=== PATIENT | male | born 1975 | race Caucasian/White ===

== ENCOUNTER 2021-05-07 09:21 | Inpatient (IN) | payer BC ==
[2021-05-07 10:12] VITALS: BMI 22.1
[2021-05-07] MEDS ORDERED: methaDONE HCL 10 MG TABLET (FOR DETOX USE ONLY) PO ONE (11:11)
[2021-05-07] MEDS ORDERED: BISMUTH SUBSALICYLATE 524 MG/30 ML PO PRN (11:11)
[2021-05-07] MEDS ORDERED: ONDANSETRON *ODT* 4 MG TABLET SL PRN (11:11)
[2021-05-07] MEDS ORDERED: ACETAMINOPHEN 325 MG TABLET (FP) PO PRN (11:11)
[2021-05-07] MEDS ORDERED: NICOTINE 10 MG CARTRIDGE (INHALER) IH PRN (11:11)
[2021-05-07] MEDS ORDERED: diazePAM 5 MG TABLET PO PRN (11:11)
[2021-05-07] MEDS ORDERED: MAGNESIUM HYDROX 2400MG/30ML ORAL SUSPENSION 30 ML CUP PO PRN (11:11)
[2021-05-07] MEDS ORDERED: MAGNESIUM CITRATE 300 ML BOTTLE PO PRN (11:11)
[2021-05-07] MEDS ORDERED: clonazePAM 0.5 MG ODT TABLETS SL PRN (11:11)
[2021-05-07] MEDS ORDERED: MENTHOL/PHENOL 1 EACH UD MM PRN (11:11)
[2021-05-07] MEDS: diazePAM 5 MG TABLET PO SCH ×3 (11:29→22:09)
[2021-05-07] MEDS ORDERED: IBUPROFEN 400 MG TABLET (FP) PO ONE (12:38)
[2021-05-07] MEDS: hydrOXYzine PAMOATE 25 MG CAPSULE (FP) PO SCH ×3 (13:23→22:09)
[2021-05-07] MEDS: NICOTINE 14 MG/24 HOURS TOPICAL PATCH TD SCH (13:23)
[2021-05-07] MEDS: PRENATAL VITAMINS W/ FOLIC ACID TABLET (FP) PO SCH (13:23)
[2021-05-07 17:29] LABS: HEMATOCRIT 41.6 % (35.4-49); HEMOGLOBIN 14.2 GM/dL (11.7-16.9); MCH 33.2 pg (25.7-33.7); MCHC 34.3 g/dl (32.0-35.9); MEAN CELL VOLUME 96.9 fl (80-96); MEAN PLT VOLUME 9.6 fl (7.5-11.1); PLATELET COUNT 209 10^3/uL (134-434); RBC 4.29 M/mm3 (4.00-5.60); RDW 12.9 % (11.9-15.9); WHITE BLOOD COUNT 7.2 K/mm3 (4.0-10.0)
[2021-05-07 17:30] LABS: CALCIUM 9.4 mg/dL (8.5-10.1)
[2021-05-07 17:31] LABS: ALBUMIN 4.1 g/dl (3.4-5.0); BLOOD UREA NITROGEN 10.8 mg/dL (7-18)
[2021-05-07] MEDS: MAG HYDROX/AL HYDROX/SIMETH 30 ML UNIT-DOSE CUP PO PRN (17:31)
[2021-05-07 17:34] LABS: CREATININE 0.8 mg/dL (0.55-1.3)
[2021-05-07 17:36] LABS: BILIRUBIN,TOTAL 0.7 mg/dL (0.2-1)
[2021-05-07 17:37] LABS: TOT PROT 7.6 g/dl (6.4-8.2)
[2021-05-07] MEDS: cloNIDine HCL 0.1 MG TABLET PO PRN (18:46)
[2021-05-07] MEDS: METHOCARBAMOL 500 MG TABLET PO PRN (18:46)
[2021-05-07] MEDS: MELATONIN 5 MG TABLETS PO SCH (22:08)
[2021-05-07] MEDS: THIAMINE HCL 100 MG TABLET (FP) PO SCH (22:09)
[2021-05-08] MEDS: ACETAMINOPHEN 325 MG TABLET (FP) PO PRN (03:31)
[2021-05-08] MEDS: METHOCARBAMOL 500 MG TABLET PO PRN (03:33)
[2021-05-08] MEDS: hydrOXYzine PAMOATE 25 MG CAPSULE (FP) PO SCH ×5 (06:36→22:24)
[2021-05-08] MEDS: diazePAM 5 MG TABLET PO SCH (06:37)
[2021-05-08] MEDS ORDERED: LORazepam 2 MG TABLET PO ONE (09:15)
[2021-05-08] MEDS ORDERED: methaDONE HCL 10 MG TABLET (FOR DETOX USE ONLY) ONE (09:24)
[2021-05-08] MEDS: cloNIDine HCL 0.1 MG TABLET PO PRN ×2 (09:33→17:56)
[2021-05-08] MEDS: LORazepam 2 MG TABLET PO SCH ×3 (10:10→22:23)
[2021-05-08] MEDS: NICOTINE 14 MG/24 HOURS TOPICAL PATCH TD SCH (10:11)
[2021-05-08] MEDS: PRENATAL VITAMINS W/ FOLIC ACID TABLET (FP) PO SCH (10:11)
[2021-05-08] MEDS: MELATONIN 5 MG TABLETS PO SCH (22:21)
[2021-05-08] MEDS: THIAMINE HCL 100 MG TABLET (FP) PO SCH (22:22)
[2021-05-09] MEDS ORDERED: diazePAM 5 MG TABLET PO SCH (06:00)
[2021-05-09] MEDS: hydrOXYzine PAMOATE 25 MG CAPSULE (FP) PO SCH ×2 (06:03→10:41)
[2021-05-09] MEDS: LORazepam 2 MG TABLET PO SCH ×4 (06:04→22:11)
[2021-05-09] MEDS ORDERED: methaDONE HCL 10 MG TABLET (FOR DETOX USE ONLY) PO ONE (10:00)
[2021-05-09] MEDS: NICOTINE 14 MG/24 HOURS TOPICAL PATCH TD SCH (10:18)
[2021-05-09] MEDS: PRENATAL VITAMINS W/ FOLIC ACID TABLET (FP) PO SCH (10:18)
[2021-05-09] MEDS: guaiFENesin 200 MG/10 ML 10 ML UNIT-DOSE CUPS PO PRN (10:18)
[2021-05-09] MEDS: IBUPROFEN 400 MG TABLET (FP) PO PRN (13:32)
[2021-05-09] MEDS: LORazepam 1 MG TABLET PO PRN (19:58)
[2021-05-09] MEDS: cloNIDine HCL 0.1 MG TABLET PO PRN (22:10)
[2021-05-09] MEDS: THIAMINE HCL 100 MG TABLET (FP) PO SCH (22:11)
[2021-05-09] MEDS: hydrOXYzine PAMOATE 25 MG CAPSULE (FP) PO PRN (22:11)
[2021-05-09] MEDS: METHOCARBAMOL 500 MG TABLET PO PRN (22:11)
[2021-05-09] MEDS: MELATONIN 5 MG TABLETS PO SCH (22:12)
[2021-05-10] MEDS ORDERED: diazePAM 5 MG TABLET PO SCH (06:00)
[2021-05-10] MEDS: LORazepam 1 MG TABLET PO SCH ×4 (06:13→22:27)
[2021-05-10] MEDS: hydrOXYzine PAMOATE 25 MG CAPSULE (FP) PO PRN ×2 (06:14→22:29)
[2021-05-10] MEDS: guaiFENesin 200 MG/10 ML 10 ML UNIT-DOSE CUPS PO PRN (06:14)
[2021-05-10] MEDS: METHOCARBAMOL 500 MG TABLET PO PRN (06:14)
[2021-05-10] MEDS: ACETAMINOPHEN 325 MG TABLET (FP) PO PRN ×2 (06:16→18:26)
[2021-05-10] MEDS: LORazepam 1 MG TABLET PO PRN ×2 (08:55→14:52)
[2021-05-10] MEDS ORDERED: methaDONE HCL 10 MG TABLET (FOR DETOX USE ONLY) ONE (09:15)
[2021-05-10] MEDS: IBUPROFEN 400 MG TABLET (FP) PO PRN (10:15)
[2021-05-10] MEDS: PRENATAL VITAMINS W/ FOLIC ACID TABLET (FP) PO SCH (10:18)
[2021-05-10] MEDS: NICOTINE 14 MG/24 HOURS TOPICAL PATCH TD SCH (11:42)
[2021-05-10] MEDS: METHOCARBAMOL 750 MG TABLET PO PRN ×2 (15:24→23:09)
[2021-05-10] MEDS: MELATONIN 5 MG TABLETS PO SCH (22:26)
[2021-05-10] MEDS: THIAMINE HCL 100 MG TABLET (FP) PO SCH (22:26)
[2021-05-11] MEDS ORDERED: LORazepam 0.5 MG TABLET PO PRN
[2021-05-11] MEDS: hydrOXYzine PAMOATE 25 MG CAPSULE (FP) PO PRN ×3 (05:22→17:40)
[2021-05-11] MEDS: LORazepam 0.5 MG TABLET PO SCH ×4 (05:22→22:20)
[2021-05-11] MEDS ORDERED: diazePAM 5 MG TABLET PO ONE (06:00)
[2021-05-11] MEDS ORDERED: methaDONE HCL 10 MG TABLET (FOR DETOX USE ONLY) PO ONE (10:00)
[2021-05-11] MEDS: METHOCARBAMOL 750 MG TABLET PO PRN ×3 (10:13→22:26)
[2021-05-11] MEDS: NICOTINE 14 MG/24 HOURS TOPICAL PATCH TD SCH (10:15)
[2021-05-11] MEDS: PRENATAL VITAMINS W/ FOLIC ACID TABLET (FP) PO SCH (10:15)
[2021-05-11] MEDS: THIAMINE HCL 100 MG TABLET (FP) PO SCH (22:20)
[2021-05-11] MEDS: MELATONIN 5 MG TABLETS PO SCH (22:20)
[2021-05-12] MEDS ORDERED: LORazepam 0.5 MG TABLET PO ONE (05:00)
[2021-05-12] MEDS: IBUPROFEN 400 MG TABLET (FP) PO PRN (05:45)
[2021-05-12] MEDS: hydrOXYzine PAMOATE 25 MG CAPSULE (FP) PO PRN (06:02)
[2021-05-12] MEDS: MAG HYDROX/AL HYDROX/SIMETH 30 ML UNIT-DOSE CUP PO PRN (06:24)
[2021-05-12 06:30] VITALS: TEMP 96.8
[2021-05-12 10:31] VITALS: BP 126/77; PULSE 72
[2021-05-12] MEDS: PRENATAL VITAMINS W/ FOLIC ACID TABLET (FP) PO SCH (11:12)
[2021-05-12] MEDS: NICOTINE 14 MG/24 HOURS TOPICAL PATCH TD SCH (11:12)
== END 2021-05-12 09:38 | disposition home or self-care (01) | DRG 773 ==
LOC: YASAS 09:21 → Y3N 11:48
PROVIDERS: ADMIT Allergy & Immunology; ATTEND Allergy & Immunology
PROC: HZ2ZZZZ Detoxification Services for Substance Abuse Treatment (ICD-10-PCS; principal; 2021-05-07)
DX: F11.23 Opioid dependence with withdrawal (principal); F10.230 Alcohol dependence with withdrawal, uncomplicated; F14.10 Cocaine abuse, uncomplicated; F17.210 Nicotine dependence, cigarettes, uncomplicated; F19.24 Other psychoactive substance dependence with psychoactive substance-induced mood disorder; F41.9 Anxiety disorder, unspecified; Z62.810 Personal history of physical and sexual abuse in childhood; Z87.19 Personal history of other diseases of the digestive system; Z83.79 Family history of other diseases of the digestive system; Z56.0 Unemployment, unspecified; Z59.01 Sheltered homelessness
CPT/HCPCS: 36415; 80053; 85027; 86780; 93005; 93010; C9803; J0735; U0003; U0005